=== PATIENT | male | born 1975 | race Caucasian/White ===

== ENCOUNTER 2024-09-01 02:04 | Inpatient (IN) | payer BC ==
[~2024-09-01] VITALS: Ht 175.3 cm; Wt 105.5 kg
[2024-09-01 03:50] LABS: BASOPHILS % (AUTO) 0.3 % (0.0-2.0); EOSINOPHILS % (AUTO) 2.1 % (1.0-6.0); HEMATOCRIT 42.4 % (41-53); HEMOGLOBIN 14.8 g/dL (13.5-17.5); MEAN CORPUSCULAR HGB CONC 34.9 G/dL (31.0-37.0); MEAN CORPUSCULAR VOLUME 83 fL (80-100); MONOCYTES # (AUTO) 0.7 K/uL (0.1-1.0); MONOCYTES % (AUTO) 6.1 % (2.0-9.0); NEUTROPHILS % (AUTO) 66.5 % (40.0-70.0); PLATELET COUNT (AUTO) 252 K/uL (150-450); RED BLOOD CELL COUNT(AUTO) 5.11 MIL/uL (4.50-5.90); RED CELL DISTRIBUTION WIDTH 14.7 % (11.5-14.5)
[2024-09-01 03:58] LABS: ANION GAP 7 mmol/L (8-16); CALCIUM, TOTAL 8.7 mg/dL (8.8-10.5); CARBON DIOXIDE 28 mmol/L (22-29); CHLORIDE 100 mmol/L (98-107); CREATININE 0.91 mg/dL (0.60-1.30); GLOMERULAR FILTR. RATE CALC > 60 mL/min (>60); GLUCOSE,RANDOM 132 mg/dL (70-110); POTASSIUM 3.8 mmol/L (3.5-5.1); SODIUM SERUM 135 mmol/L (136-145); UREA NITROGEN, BLOOD 11 mg/dL (7-18)
[2024-09-01 04:17] LABS: ALCOHOL, BLOOD (SERUM) < 3 mg/dL (0-10)
[2024-09-01 04:21] LABS: TROPONIN I-HIGH SENSITIVITY 14 ng/L (<76)
[2024-09-01 04:55] LABS: CREATINE KINASE, TOTAL ONLY 101 U/L (39-308)
[2024-09-01] MEDS: SODIUM CHLORIDE 0.9% 2,000 ML IV ONE (04:59)
[2024-09-01] MEDS: LORazepam 2 MG/ML VIAL IVP ONE (05:00)
[2024-09-01 05:05] LABS: PH,URINE DRUG SCREEN 6.5 (5.0-8.0)
[2024-09-01 05:13] LABS: AMPHET/METH SCREEN,URINE NEGATIVE (NEGATIVE); BARBITURATE SCREEN, URINE NEGATIVE (NEGATIVE); BENZODIAZEPINES SCREEN,URINE POSITIVE (NEGATIVE); CANNABINOID SCREEN,URINE NEGATIVE (NEGATIVE); COCAINE SCREEN,URINE NEGATIVE (NEGATIVE); METHADONE SCREEN, URINE NEGATIVE (NEGATIVE); OPIATE SCREEN,URINE NEGATIVE (NEGATIVE); PHENCYCLIDINE SCREEN,URINE NEGATIVE (NEGATIVE)
[2024-09-01 05:18] LABS: ALCOHOL, URINE DRUG SCREEN NEGATIVE (NEGATIVE)
[2024-09-01] MEDS ORDERED: HydrOXYzine PAMOATE 50 MG CAPSULE PO PRN ×2 (06:15→06:30)
[2024-09-01] MEDS ORDERED: LOPERAMIDE HCL 2 MG CAPSULE PO PRN (14:45)
[2024-09-01] MEDS ORDERED: METOCLOPRAMIDE HCL 5 MG/ML 2 ML VIAL IVP PRN (14:45)
[2024-09-01] MEDS ORDERED: DICYCLOMINE HCL 10 MG CAPSULE PO PRN (14:45)
[2024-09-01] MEDS: LORazepam 2 MG/ML VIAL IVP PRN (15:21)
[2024-09-01 18:33] VITALS: BP 125/80; PULSE 66; RESP 18; TEMP 98.1; O2SAT 98
[2024-09-01 20:43] VITALS: BP 125/83; PULSE 63; RESP 18; TEMP 99.1; O2SAT 98
[2024-09-01] MEDS: TEMAZEPAM 15 MG CAPSULE PO SCH (21:30)
[2024-09-02 05:25] VITALS: BP 118/69; PULSE 66; RESP 18; TEMP 97.8; O2SAT 98
[2024-09-02 08:15] VITALS: BP 141/60; PULSE 77; RESP 20; TEMP 98.2; O2SAT 96
[2024-09-02 11:56] LABS: BASOPHILS % (AUTO) 1.3 % (0.0-2.0); HEMATOCRIT 43.7 % (41-53); HEMOGLOBIN 14.9 g/dL (13.5-17.5); LYMPHOCYTES # (AUTO) 1.9 K/uL (1.0-4.8); LYMPHOCYTES % (AUTO) 29.2 % (22.0-44.0); MEAN CORPUSCULAR HEMOGLOBIN 28.6 pg (26.0-34.0); MEAN CORPUSCULAR HGB CONC 34.1 G/dL (31.0-37.0); MEAN CORPUSCULAR VOLUME 84 fL (80-100); MONOCYTES # (AUTO) 0.4 K/uL (0.1-1.0); MONOCYTES % (AUTO) 5.9 % (2.0-9.0); NEUTROPHILS # (AUTO) 3.9 K/uL (1.8-7.7); NEUTROPHILS % (AUTO) 60.6 % (40.0-70.0); PLATELET COUNT (AUTO) 189 K/uL (150-450); RED BLOOD CELL COUNT(AUTO) 5.21 MIL/uL (4.50-5.90); RED CELL DISTRIBUTION WIDTH 14.7 % (11.5-14.5); WHITE BLOOD COUNT (AUTO) 6.5 K/uL (4.5-11.0)
[2024-09-02 12:33] LABS: ANION GAP 6 mmol/L (8-16); CALCIUM, TOTAL 8.8 mg/dL (8.8-10.5); CARBON DIOXIDE 27 mmol/L (22-29); CHLORIDE 102 mmol/L (98-107); CREATININE 0.85 mg/dL (0.60-1.30); GLOMERULAR FILTR. RATE CALC > 60 mL/min (>60); GLUCOSE,RANDOM 105 mg/dL (70-110); LIPASE 62 U/L (16-77); POTASSIUM 4.2 mmol/L (3.5-5.1); SODIUM SERUM 135 mmol/L (136-145); UREA NITROGEN, BLOOD 8 mg/dL (7-18)
[2024-09-02 17:01] VITALS: BP 120/58; PULSE 61; RESP 18; TEMP 98.1; O2SAT 98
[2024-09-02] MEDS ORDERED: LORazepam 2 MG/ML VIAL IVP PRN (17:15)
[2024-09-02] MEDS ORDERED: ESZOPICLONE 3 MG TABLET PO PRN (17:15)
[2024-09-02 19:34] VITALS: BP 111/68; PULSE 69; RESP 18; TEMP 98.2; O2SAT 98
[2024-09-02] MEDS: MELATONIN 5 MG TABLET PO SCH (20:18)
[2024-09-02] MEDS: DOCUSATE SODIUM 100 MG CAPSULE PO SCH (20:18)
[2024-09-03 05:43] VITALS: BP 106/58; PULSE 59; RESP 18; TEMP 98; O2SAT 98
[2024-09-03 08:03] VITALS: BP 120/84; PULSE 51; RESP 18; TEMP 97.7; O2SAT 97
[2024-09-03] MEDS: MODAFINIL 100 MG TABLET PO SCH (08:31)
[2024-09-03] MEDS: NALTREXONE HCL 50 MG TABLET PO SCH (08:31)
[2024-09-03 15:48] VITALS: BP 117/84; PULSE 71; RESP 18; TEMP 98.1; O2SAT 96
[2024-09-03] MEDS ORDERED: MODA100T65 PO (16:13)
[2024-09-03] MEDS ORDERED: NALT50TA33 PO (16:13)
[2024-09-03] MEDS ORDERED: MELA5TAB40 PO ×2 (16:13→16:40)
== END 2024-09-03 19:40 | disposition home or self-care (01) | DRG 641 ==
LOC: EMS 02:04 → EDH 07:22 → 4E 19:33
PROVIDERS: ADMIT Internal Medicine; ATTEND Internal Medicine
DX: E86.0 Dehydration (principal); F33.1 Major depressive disorder, recurrent, moderate; E11.9 Type 2 diabetes mellitus without complications; F19.10 Other psychoactive substance abuse, uncomplicated; F10.21 Alcohol dependence, in remission; F41.9 Anxiety disorder, unspecified; D72.829 Elevated white blood cell count, unspecified; G89.29 Other chronic pain; M25.512 Pain in left shoulder; Z90.49 Acquired absence of other specified parts of digestive tract
CPT/HCPCS: 76700; 80048; 80307; 82550; 83690; 84484; 85025; 93005; 99285; G0378; G0480; J2060